=== PATIENT | female | born 1970 | race Caucasian/White ===

== ENCOUNTER 2023-01-26 15:37 | Emergency (ER) | payer MEDICAID, SELFPAY ==
[2023-01-26 15:46] VITALS: BP 115/89; PULSE 108; RESP 18; TEMP 36.8; O2SAT 99; BMI 56.2
--- NOTE | 2023-01-26 15:49 | ED_ITS ---
Documented by User: Jazmin Robles MD 01/26/23 18:52 HPI - Fall General Chief Complaint: Fall Stated Complaint: hit head/headache Time Seen by Provider: 01/26/23 15:49 Related Data Allergies Allergy/AdvReac Type Severity Reaction Status Date / Time amoxicillin Allergy Severe Hives Verified 01/26/23 15:46 meperidine [From Demerol] Allergy Severe Hives Verified 01/26/23 15:46 cortisone AdvReac Severe Hives Verified 01/26/23 15:46 PFSH PFSH Social History Smoking status: Never smoker Exam Constitutional Vital Signs, click to edit/add: Last Vital Signs Temp 98.2 F 01/26/23 15:46 Pulse 99 H 01/26/23 17:43 Resp 14 01/26/23 17:43 BP 103/72 01/26/23 17:18 Pulse Ox 99 01/26/23 17:43 O2 Del Method Room Air 01/26/23 17:43 Course Vital Signs Vital signs: Vital Signs Temperature 98.2 F 01/26/23 15:46 Pulse Rate 108 H 01/26/23 15:46 Respiratory Rate 18 01/26/23 15:46 Blood Pressure 115/89 01/26/23 15:46 Pulse Oximetry 99 01/26/23 15:46 Oxygen Delivery Method Room Air 01/26/23 15:46 Temperature 98.2 F 01/26/23 15:46 Pulse Rate 99 H 01/26/23 17:43 Respiratory Rate 14 01/26/23 17:43 Blood Pressure 103/72 01/26/23 17:18 Pulse Oximetry 99 01/26/23 17:43 Oxygen Delivery Method Room Air 01/26/23 17:43 MDM - Fall MDM Narrative Medical decision making narrative: CT scans of the head and cervical spine were negative for acute findings. The patient was encouraged to follow up with her pcp for a recheck, further evaluation and treatment. Tylenol as directed for pain. Return precautions were discussed. Attending physician attestation I have reviewed the mid-level documentation, agree with the documentation, medical decision making and treatment plan as outlined by the mid-level provider. Discharge Plan Discharge Chief Complaint: Fall Clinical Impression: Head injury, Fall Patient Disposition: Home, Self-Care Time of Disposition Decision: 17:35 Condition: Good Mode of Transportation: Private Vehicle Instructions: Head Injury (ED), Fall Prevention (ED) Additional Instructions: Return to the ER if your condition worsens. Stand Alone Forms: Portal Instructions Referrals: Physician,Non-Staff, MD [Primary Care Provider] - 1 week Discharge Date/Time: 01/26/23 17:45 Documented by User: Ashli Pedro 01/26/23 18:14 HPI - Fall General Chief Complaint: Fall Stated Complaint: hit head/headache Time Seen by Provider: 01/26/23 15:49 Source: patient History of Present Illness HPI Narrative: 52 year old female presents to the ED for a headache s/p fall last night. States she was outside without her walker when she fell, striking her forehead on the ground. Denies LOC, vision changes weakness, dizziness. Reports a continued MILNER today. Denies injury to other areas. Denies pain to her neck, back, chest, abdomen, extremities. Rates her pain 9/10 at this time; severe. She has hx Parkinson's disease. Related Data Allergies Allergy/AdvReac Type Severity Reaction Status Date / Time amoxicillin Allergy Severe Hives Verified 01/26/23 15:46 meperidine [From Demerol] Allergy Severe Hives Verified 01/26/23 15:46 cortisone AdvReac Severe Hives Verified 01/26/23 15:46 Review of Systems ROS Constitutional Denies: fever or chills Eyes Denies: change in vision or blurry vision Cardiovascular Denies: chest pain Respiratory Denies: shortness of breath Gastrointestinal Denies: abdominal pain, nausea or vomiting Musculoskeletal Denies: back pain, neck pain or extremity pain Integumentary/Breast Denies: rash or redness PFSH PFSH Social History Smoking status: Never smoker Exam Constitutional Vital Signs, click to edit/add: Last Vital Signs Temp 98.2 F 01/26/23 15:46 Pulse 99 H 01/26/23 17:43 Resp 14 01/26/23 17:43 BP 103/72 01/26/23 17:18 Pulse Ox 99 01/26/23 17:43 O2 Del Method Room Air 01/26/23 17:43 Common normals: no apparent distress and oriented x3 General appearance: cooperative; not ill appearing [facility] Common normals: normocephalic and external ears normal Nose: external nose normal; no epistaxis External ear: external ears normal Mouth: oral and palatal mucosa normal, lip normal and tongue normal Eye Common normals: PERRL and EOMs intact bilaterally Neck & C-Spine Common normals: supple General: trachea midline Cervical spine: no cervical spine tenderness and no paracervical muscle tenderness Chest Chest: symmetrical chest wall rise Respiratory Common normals: normal respiratory effort Effort & inspection: able to speak in complete sentences and symmetric chest movement; no respiratory distress Cardio Rate: regular rate Back & Pelvis Thoracic spine/upper back: normal to inspection; no thoracic spinal tenderness and no paraspinal muscle tenderness Lumbar spine/lower back: normal to inspection; no lumbar spinal tenderness and no paraspinal muscle tenderness Extremity Common normals: normal to inspection, full ROM and normal capillary refill Neuro Common normals: oriented x3 Sensorium/orientation: awake and alert Speech: speech normal Course Vital Signs Vital signs: Vital Signs Temperature 98.2 F 01/26/23 15:46 Pulse Rate 108 H 01/26/23 15:46 Respiratory Rate 18 01/26/23 15:46 Blood Pressure 115/89 01/26/23 15:46 Pulse Oximetry 99 01/26/23 15:46 Oxygen Delivery Method Room Air 01/26/23 15:46 Temperature 98.2 F 01/26/23 15:46 Pulse Rate 99 H 01/26/23 17:43 Respiratory Rate 14 01/26/23 17:43 Blood Pressure 103/72 01/26/23 17:18 Pulse Oximetry 99 01/26/23 17:43 Oxygen Delivery Method Room Air 01/26/23 17:43 MDM - Fall MDM Narrative Medical decision making narrative: CT scans of the head and cervical spine were negative for acute findings. The patient was encouraged to follow up with her pcp for a recheck, further evaluation and treatment. Tylenol as directed for pain. Return precautions were discussed. Medical Records Attestation: I reviewed the patient's medical records. Imaging Data CT scan- cervical spine: Attestation: I have reviewed the pertinent imaging results. Radiologist's impression: Procedure: CT cervical spine wo con CT CERVICAL SPINE WITHOUT CONTRAST HISTORY: fall. COMPARISON: None available. TECHNIQUE: Helical CT images were performed of the cervical spine without intravenous contrast. Dose reduction techniques were achieved by using automated exposure control and/or adjustment of mA and/or kV according to patient size and/or use of iterative reconstruction technique. 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 MINERALIZATION: Normal. CRANIOCERVICAL AND ATLANTOAXIAL ARTICULATIONS: Intact with no traumatic subluxation. VERTEBRAL BODIES: Normal in height with no acute compression fracture. DISC SPACES: Normal. ALIGNMENT: Normal. POSTERIOR ELEMENTS: Intact. ODONTOID PROCESS: Intact. VISUALIZED SKULL BASE: Unremarkable. SPINAL CANAL/NEURAL FORAMEN: There is mild left and moderate right neural foraminal stenosis at C3-C4 due to facet and uncovertebral hypertrophy. There is no significant canal stenosis. UPPER THORAX: Unremarkable. SOFT TISSUES OF THE NECK: Unremarkable. CT/CT cervical spine wo con IMPRESSION: 1. No acute fracture or subluxation. 2. Degenerative changes as described above. Electronically authenticated by: CAROLYNE URIAS Date: 01/26/2023 17:28 CT scan - head: Attestation: I have reviewed the pertinent imaging results. Radiologist's impression: Procedure: CT head/brain wo con EXAMINATION: CT head/brain wo con, 01/26/2023 4:33 PM EDT HISTORY: fall COMPARISON: None. TECHNIQUE: CT scan of the head was performed without IV contrast. CT dose reduction technique was used, including Automated Exposure Control. FINDINGS: BRAIN PARENCHYMA/CSF SPACES: Ventricles are normal in size for age. There is no hemorrhage, mass effect or midline shift. There are no other significant findings. PARANASAL SINUSES: Clear. SKULL BASE AND CALVARIUM: Normal. EXTRACRANIAL SOFT TISSUES: Normal. CT/CT head/brain wo con IMPRESSION: Normal noncontrast head CT. Electronically authenticated by: CAROLYNE URIAS Date: 01/26/2023 17:22 Discharge Plan Discharge Chief Complaint: Fall Clinical Impression: Head injury, Fall Patient Disposition: Home, Self-Care Time of Disposition Decision: 17:35 Condition: Good Mode of Transportation: Private Vehicle Instructions: Head Injury (ED), Fall Prevention (ED) Additional Instructions: Return to the ER if your condition worsens. Stand Alone Forms: Portal Instructions Referrals: Physician,Non-Staff, MD [Primary Care Provider] - 1 week Discharge Date/Time: 01/26/23 17:45
--- NOTE | 2023-01-26 16:43 | CT_ITS ---
The [address] [address] Patient Name: BRYAN MARTINEZ MRN: [id number] date: 1970 Sex: F Assigned Patient Location: ER Current Patient Location: ED.MAIN Accession/Order Number: [id number] Exam Date: 01/26/2023 16:33 Report Date: 01/26/2023 18:51 At the request of: ELENO BARRERA Procedure: CT head/brain wo con EXAMINATION: CT head/brain wo con, 01/26/2023 4:33 PM EDT HISTORY: fall COMPARISON: None. TECHNIQUE: CT scan of the head was performed without IV contrast. CT dose reduction technique was used, including Automated Exposure Control. FINDINGS: BRAIN PARENCHYMA/CSF SPACES: Ventricles are normal in size for age. There is no hemorrhage, mass effect or midline shift. There are no other significant findings. PARANASAL SINUSES: Clear. SKULL BASE AND CALVARIUM: Normal. EXTRACRANIAL SOFT TISSUES: Normal. CT/CT head/brain wo con IMPRESSION: Normal noncontrast head CT. Electronically authenticated by: CAROLYNE URIAS Date: 01/26/2023 18:51
--- NOTE | 2023-01-26 16:43 | CT_ITS ---
The [address] [address] Patient Name: BRYAN MARTINEZ MRN: [id number] date: 1970 Sex: F Assigned Patient Location: ER Current Patient Location: .[facility] Accession/Order Number: [id number] Exam Date: 01/26/2023 16:33 Report Date: 01/26/2023 18:51 At the request of: ELENO BARRERA Procedure: CT cervical spine wo con CT CERVICAL SPINE WITHOUT CONTRAST HISTORY: fall. COMPARISON: None available. TECHNIQUE: Helical CT images were performed of the cervical spine without intravenous contrast. Dose reduction techniques were achieved by using automated exposure control and/or adjustment of mA and/or kV according to patient size and/or use of iterative reconstruction technique. 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 MINERALIZATION: Normal. CRANIOCERVICAL AND ATLANTOAXIAL ARTICULATIONS: Intact with no traumatic subluxation. VERTEBRAL BODIES: Normal in height with no acute compression fracture. DISC SPACES: Normal. ALIGNMENT: Normal. POSTERIOR ELEMENTS: Intact. ODONTOID PROCESS: Intact. VISUALIZED SKULL BASE: Unremarkable. SPINAL CANAL/NEURAL FORAMEN: There is mild left and moderate right neural foraminal stenosis at C3-C4 due to facet and uncovertebral hypertrophy. There is no significant canal stenosis. UPPER THORAX: Unremarkable. SOFT TISSUES OF THE NECK: Unremarkable. CT/CT cervical spine wo con IMPRESSION: 1. No acute fracture or subluxation. 2. Degenerative changes as described above. Electronically authenticated by: CAROLYNE URIAS Date: 01/26/2023 18:51
[2023-01-26 17:18] VITALS: BP 103/72; PULSE 100; RESP 16; O2SAT 99
[2023-01-26 17:43] VITALS: PULSE 99; RESP 14; O2SAT 99
== END 2023-01-26 17:45 | disposition home or self-care (01) ==
PROVIDERS: Emergency Provider Emergency Medicine
DX: S09.90XA Unspecified injury of head, initial encounter (principal); W19.XXXA Unspecified fall, initial encounter; G20 Parkinson's disease
CPT/HCPCS: 70450; 72125; 99284

== ENCOUNTER 2025-02-27 18:31 | Inpatient (IN) | payer MEDICARE, MEDICAID, SELFPAY ==
[2025-02-27] VITALS (17 sets, daily range): BP systolic 112–118; BP diastolic 67–95; PULSE 91–218; TEMP 36.4–36.8; O2SAT 95–100; BMI 36.0; BMI 41.9
--- NOTE | 2025-02-27 19:13 | XR_ITS ---
The [address] [address] Patient Name: BRYAN MARTINEZ MRN: [id number] date: 1970 Sex: F Assigned Patient Location: ER Current Patient Location: ER Accession/Order Number: [id number] Exam Date: 02/27/2025 19:42 Report Date: 02/27/2025 19:58 At the request of: LAUREN RO MD Procedure: XR chest 1V XR chest 1V 02/27/2025 7:50 PM SIGNS AND SYMPTOMS: ^Tachycardia ^Y PROTOCOL: Frontal radiograph of the chest COMPARISON: None FINDINGS: The trachea is midline. There is mild cardiomegaly. The lung parenchyma is clear. The bony thorax is intact. Degenerative changes are noted in the shoulders and thoracic spine. XR/XR chest 1V IMPRESSION: No focal consolidation. There is mild cardiomegaly. Impression dictated by: Remy Sanchez M.D. 02/27/2025 7:58 PM Dictation Location: [place] [address] Electronically authenticated by: [id number] Y Date: 02/27/2025 19:58
--- NOTE | 2025-02-27 19:13 | ECG_ITS ---
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 Measurements Intervals [place] Rate: 115 P: -97209 NC: -11671 QRS: -71 QRSD: 80 T: 73 QT: 292 QTc: 360 Interpretive Statements Likely sinus tachycardia 3114 Cannot rule out anterior myocardial infarction, age undetermined 3634 Inferior myocardial infarction, age undetermined [address] depression, probably digitalis effect 0102 ARTIFACT PRESENT 9150 abnormal ECG No previous ECG available for comparison Repeat ECG is recommended Electronically Signed On 02-28-2025 20:10:[address] M.D.
--- NOTE | 2025-02-27 19:14 | CT_ITS ---
The [address] [address] Patient Name: BRYAN MARTINEZ MRN: [id number] date: 1970 Sex: F Assigned Patient Location: ER Current Patient Location: ER Accession/Order Number: [id number] Exam Date: 02/27/2025 19:42 Report Date: 02/27/2025 19:56 At the request of: LAUREN RO MD Procedure: CT head/brain wo con CT head/brain wo con 02/27/2025 7:50 PM SIGNS AND SYMPTOMS: ^Visual hallucinations TECHNIQUE:Multi-detector CT axial slices of the brain were obtained without IV contrast. CT was performed with one or more of the following dose reduction techniques: Automated exposure control, adjustment of the mA and/or kV according to patient size, or use of iterative reconstruction technique. COMPARISON: None. FINDINGS: There is no shift of the midline structures, acute intracranial bleeding, mass effects, or evidence of acute ischemia. The ventricular system is normal in size. The brainstem and the cerebellum are unremarkable. The visualized intraorbital contents, the visualized paranasal sinuses, and the infratemporal soft tissues show no acute abnormality. The osseous structures in the skull base and the calvarium show no abnormality. CT/CT head/brain wo con IMPRESSION: No acute intrarenal pathology. Impression dictated by: Remy Sanchez M.D. 02/27/2025 7:56 PM Dictation Location: [place] [address] Electronically authenticated by: [id number] Y Date: 02/27/2025 19:56
--- NOTE | 2025-02-27 19:14 | ED.GENADUL1 ---
HPI HPI - General Adult General Chief complaint: Urogenital-Female Stated complaint: POSS UTI, PAIN/SPOTS ON LEGS Time Seen by Provider: 02/27/25 18:52 Source: patient Mode of arrival: walk-in Limitations: physical limitation History of Present Illness HPI narrative: 54-year-old female presents to [facility] for possible UTI. She had been discharged from another hospital, where she has been admitted for UTI, about 10 days ago and went back to her ECF. She states that she has been seeing spiders in her bed and the staff there is been yelling at her and she does not like it when they yell at her. She was noted to be tachycardic. She has been tremorous but has Parkinson. No fever or vomiting. Related Data Allergies Allergy/AdvReac Type Severity Reaction Status Date / Time amoxicillin Allergy Severe Hives Verified 02/27/25 18:40 meperidine (From Demerol) Allergy Severe Hives Verified 02/27/25 18:40 Review of Systems ROS Narrative A ten point review of systems is negative except as noted above. PFSH PFSH Social History Smoking status: Never smoker Exam Narrative Exam Narrative: Nurses note and vital signs reviewed and patient is not hypoxic. General: The patient appears in no acute distress Skin: Warm, dry, no pallor noted. Head: Normocephalic, atraumatic Eye: Normal conjunctiva, no drainage Ears, Nose, Mouth, and Throat: oral mucosa is moist. Nares patent. Cardiovascular: Regular Rate and Rhythm, tachycardic Respiratory: Patient is in no distress, no accessory muscle use, lungs are clear to auscultation, no wheezing, rales or rhonchi Back: non-tender GI: Soft and nontender Musculoskeletal: The patient has no evidence of calf tenderness, no pitting edema, symmetrical pulses noted bilaterally Neurological: A&O x4, normal speech; tremorous Psychiatric: Cooperative Constitutional Vital Signs, click to edit/add: Last Vital Signs Temp 97.5 F L 02/27/25 18:41 Pulse 122 H 02/27/25 18:41 Resp 18 02/27/25 18:41 BP 117/95 H 02/27/25 18:41 Pulse Ox 96 02/27/25 18:41 O2 Del Method Room Air 02/27/25 18:41 Course Vital Signs Vital signs: Vital Signs Temperature 97.5 F L 02/27/25 18:41 Pulse Rate 122 H 02/27/25 18:41 Respiratory Rate 18 02/27/25 18:41 Blood Pressure 117/95 H 02/27/25 18:41 Pulse Oximetry 96 02/27/25 18:41 Oxygen Delivery Method Room Air 02/27/25 18:41 Temperature 97.5 F L 02/27/25 18:41 Pulse Rate 122 H 02/27/25 18:41 Respiratory Rate 18 02/27/25 18:41 Blood Pressure 117/95 H 02/27/25 18:41 Pulse Oximetry 96 02/27/25 18:41 Oxygen Delivery Method Room Air 02/27/25 18:41 Medical Decision Making MDM Narrative Medical decision making narrative: Urine shows 5-10 white cells per high-power field and trace leukocyte esterase. Cultures pending. WBC is 14.9. Initial lactic acid is 2.8. She was given IV fluids and IV Cipro with cultures pending. Brain CT and chest x-ray are negative and she is being admitted. Treatment diagnosis and disposition were discussed with the patient and her family. Differential Diagnosis Differential Diagnosis: UTI, pneumonia, dehydration Lab Data Lab results reviewed: Yes I reviewed the patient's lab results Labs: Lab Results 02/27/25 02/27/25 Range/Units 19:06 19:27 WBC 14.9 H (4.0-11.0) 10^3/uL RBC 4.80 (4.20-5.40) 10^6/uL Hgb 13.8 (12.0-16.0) g/dL Hct 41.7 (36.0-48.0) % MCV 86.9 (81.0-99.0) fL MCH 28.8 (26.7-34.0) pg MCHC 33.1 (29.9-35.2) g/dL RDW 13.4 (11.0-15.0) % Plt Count 486 H (150-450) 10^3/uL MPV 9.3 L (9.5-13.5) fL Neut % (Auto) 74.3 (43.0-75.0) % Lymph % (Auto) 15.1 L (20.5-60.0) % [place] % (Auto) 8.8 (1.7-12.0) % Eos % (Auto) 0.5 L (0.9-7.0) % Baso % (Auto) 0.9 (0.2-2.0) % Neut # (Auto) 11.1 H (1.4-6.5) 10^3/uL Lymph # (Auto) 2.3 (1.2-3.8) 10^3/uL [place] # (Auto) 1.3 H (0.3-0.8) 10^3/uL Eos # (Auto) 0.1 (0.0-0.7) 10^3/uL Baso # (Auto) 0.1 (0.0-0.1) 10^3/uL Abs Immat Gran (auto) 0.06 H (0.00-0.03) 10^3/uL Imm/Tot Granulo (auto) 0.4 (0.0-0.5) % Sodium 139 (136-145) mmol/L Potassium 4.6 (3.5-5.1) mmol/L Chloride 102 (98-107) mmol/L Carbon Dioxide 25.2 (21.0-32.0) mmol/L Anion Gap 16.4 BUN 16.0 (7.0-18.0) mg/dL Creatinine 0.98 (0.55-1.02) mg/dL Est GFR ( Amer) >60 (>=60 mL/min/1.73m^2) Est GFR (Non-Af Amer) 59 L (>=60 mL/min/1.73m^2) BUN/Creatinine Ratio 16.3 Glucose 112 H (74-106) mg/dL Lactate 2.8 H* (0.4-2.0) mmol/L Calcium 9.7 (8.5-10.1) mg/dL Total Bilirubin 0.5 (0.2-1.0) mg/dL AST 18 (15-37) U/L ALT 18 (14-59) U/L Alkaline Phosphatase 104 (46-116) U/L Total Protein 8.0 (6.4-8.2) g/dL Albumin 4.0 (3.4-5.0) g/dL Globulin 4.0 g/dL Albumin/Globulin Ratio 1.0 Urine Color Yellow (YELLOW) Urine Clarity Clear (CLEAR) Urine pH 6.0 (5.0-9.0) Ur Specific [place] >=1.030 A (1.005-1.025) Urine Protein Trace (NEG/TRACE) mg/dL Urine Glucose (UA) Negative (NEGATIVE) mg/dL Urine Ketones >=80 A (NEGATIVE) mg/dL Urine Occult Blood Negative (NEGATIVE) Urine Nitrite Negative (NEGATIVE) Urine Bilirubin Negative (NEGATIVE) Urine Urobilinogen 0.2 (0.2-1.0) EU/dL Ur Leukocyte Esterase Trace A (NEGATIVE) Urine RBC 0-2 (0-2) #/HPF Urine WBC 5-10 A (NONE SEEN) #/HPF Ur Squamous Epith Cells None seen (NONE/RARE) #/LPF Urine Crystals None seen (None Seen) #/HPF Urine Bacteria None seen (NONE SEEN) #/HPF Urine Casts None seen (NONE SEEN) #/LPF Urine Mucus Small A (NONE SEEN) Ur Culture Indicated? Yes-[facility] [place] Imaging Data Chest x-ray: Radiologist's impression: ITS Impressions Chest X-Ray 02/27/25 19:13 IMPRESSION: No focal consolidation. There is mild cardiomegaly. Impression dictated by: Remy Sanchez M.D. 02/27/2025 7:58 PM Dictation Location: [place] [address] Electronically authenticated by: [id number] Y Date: 02/27/2025 19:[address] 02/27/25 19:14 IMPRESSION: No acute intrarenal pathology. Impression dictated by: Remy Sanchez M.D. 02/27/2025 7:56 PM Dictation Location: [place] [address] Electronically authenticated by: [id number] Y Date: 02/27/2025 19:56 ECG Data Attestation: I personally reviewed and interpreted this ECG as follows: (EKG on my interpretation shows artifact. The patient has significant tremors from Parkinson and a good EKG is not obtained) Discharge Plan Discharge Chief Complaint: Urogenital-Female Clinical Impression: Urinary tract infection Patient Disposition: Admitted As Inpatient Time of Disposition Decision: 20:16 Condition: Fair
[2025-02-27 19:33] LABS: Hematocrit 41.7 % (36.0-48.0); Hemoglobin 13.8 g/dL (12.0-16.0); Immature Granulocytes Abs Auto 0.06 10^3/uL (0.00-0.03); Immature Granulocytes Pct Auto 0.4 % (0.0-0.5); Lymphocytes Absolute Auto 2.3 10^3/uL (1.2-3.8); Mean Corpuscular HGB Conc 33.1 g/dL (29.9-35.2); Mean Corpuscular Hemoglobin 28.8 pg (26.7-34.0); Mean Corpuscular Volume 86.9 fL (81.0-99.0); Platelet Count 486 10^3/uL (150-450); Red Blood Count 4.80 10^6/uL (4.20-5.40); White Blood Count 14.9 10^3/uL (4.0-11.0)
[2025-02-27 19:35] LABS: Glucose Urine UA NEGATIVE (NEGATIVE)
[2025-02-27 19:42] LABS: Cast Seen? NONE SEEN #/LPF (NONE SEEN); Crystals Seen? None Seen #/HPF (None Seen); Urine Culture Indicated YES-FRMC
[2025-02-27 19:48] LABS: Alanine Aminotransferase 18 U/L (14-59); Albumin Globulin Ratio 1.0; Albumin Level 4.0 g/dL (3.4-5.0); Alkaline Phosphatase 104 U/L (46-116); Anion Gap 16.4; Aspartate Amino Transferase 18 U/L (15-37); Blood Urea Nitrogen 16.0 mg/dL (7.0-18.0); Calcium 9.7 mg/dL (8.5-10.1); Carbon Dioxide 25.2 mmol/L (21.0-32.0); Chloride 102 mmol/L (98-107); Estimated GFR (African America >60 (>=60 mL/min/1.73m^2); Estimated GFR (Non-African Ame 59 (>=60 mL/min/1.73m^2); Globulin 4.0 g/dL; Glucose 112 mg/dL (74-106); Potassium 4.6 mmol/L (3.5-5.1); Sodium 139 mmol/L (136-145); Total Protein 8.0 g/dL (6.4-8.2)
[2025-02-27 20:03] LABS: Lactate/Lactic Acid 2.8 mmol/L (0.4-2.0)
[2025-02-27] MEDS: 0.9 % SODIUM CHLORIDE 1,000 ML 1000 ML IV (20:23)
[2025-02-27] MEDS: CIPROFLOXACIN IN 5 % DEXTROSE 400 MG/200 ML PREMIX 200 MG IV (20:24)
[2025-02-27] MEDS: METOPROLOL TARTRATE 25 MG TABLET PO (23:15)
[2025-02-27] MEDS: ASPIRIN 81 MG TAB.CHEW PO (23:15)
[2025-02-27] MEDS: METOPROLOL TARTRATE 5 MG/5 ML VIAL IVP (23:16)
[2025-02-28] VITALS (17 sets, daily range): BP systolic 98–121; BP diastolic 62–70; PULSE 78–103; TEMP 36.5–37.1; O2SAT 94–95
[2025-02-28 05:12] LABS: Hematocrit 37.4 % (36.0-48.0); Hemoglobin 12.3 g/dL (12.0-16.0); Immature Granulocytes Abs Auto 0.02 10^3/uL (0.00-0.03); Immature Granulocytes Pct Auto 0.2 % (0.0-0.5); Lymphocytes Absolute Auto 1.8 10^3/uL (1.2-3.8); Mean Corpuscular HGB Conc 32.9 g/dL (29.9-35.2); Mean Corpuscular Hemoglobin 28.7 pg (26.7-34.0); Mean Corpuscular Volume 87.4 fL (81.0-99.0); Platelet Count 372 10^3/uL (150-450); Red Blood Count 4.28 10^6/uL (4.20-5.40); White Blood Count 9.7 10^3/uL (4.0-11.0)
[2025-02-28 05:33] LABS: Alanine Aminotransferase 23 U/L (14-59); Albumin Globulin Ratio 0.9; Albumin Level 3.1 g/dL (3.4-5.0); Alkaline Phosphatase 84 U/L (46-116); Anion Gap 12.8; Aspartate Amino Transferase 13 U/L (15-37); Blood Urea Nitrogen 11.0 mg/dL (7.0-18.0); Calcium 8.5 mg/dL (8.5-10.1); Carbon Dioxide 22.9 mmol/L (21.0-32.0); Chloride 106 mmol/L (98-107); Estimated GFR (African America >60 (>=60 mL/min/1.73m^2); Estimated GFR (Non-African Ame >60 (>=60 mL/min/1.73m^2); Globulin 3.4 g/dL; Glucose 86 mg/dL (74-106); Magnesium 1.9 mg/dL (1.8-2.4); Potassium 3.7 mmol/L (3.5-5.1); Sodium 138 mmol/L (136-145); Total Protein 6.5 g/dL (6.4-8.2)
[2025-02-28] MEDS: ENOXAPARIN SODIUM 40 MG/0.4 ML SYRINGE SUBQ (08:16)
[2025-02-28] MEDS: ASPIRIN 81 MG TAB.CHEW PO (08:16)
[2025-02-28] MEDS: METOPROLOL TARTRATE 25 MG TABLET PO ×2 (08:16→21:02)
--- NOTE | 2025-02-28 08:40 | CM.NOTE ---
Rounds made with Dr. Mcclendon, discussed with pt reason for admission and plan of care. Pt is inpatient status, no discharge today. Pt will need continued inpatient treatment as ordered.
--- NOTE | 2025-02-28 09:12 | SWNOTE1 ---
LEIGH reached out to Danielle at [facility] to see if pt was skilled or long-term at there facility. Danielle replied that she will check and get back to LEIGH.
[2025-02-28] MEDS: NYSTATIN 100,000 UNITS/GRAM CREAM 15 GM TUBE 1 APPLIC TOPICAL ×2 (09:14→21:02)
--- NOTE | 2025-02-28 10:05 | SWNOTE1 ---
Important Message from [employer] reviewed and discussed with patient. Pt. verbalized understanding and signed the form. Original given to patient and copy placed in patient?s chart.
--- NOTE | 2025-02-28 10:05 | SWNOTE1 ---
SW met with pt to discuss dc needs. 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 Pt let SW know she is still getting therapy at [facility] 5x a week. She does have her rollator in the room as well. Pt let SW know that she was at [facility] for rehab a year or 2 ago and then returned home. She has Parkinson's and it got worse and she could not care for herself at home and returned to [facility]. She stated she now has a new Parkinson's doctor and she is getting better. If she gets to a point that she can care for herself, she stated [facility] will assist with placement at assisted living if that is what patient wants. Pt's plan right now is to return to [facility] and get more therapy. SW did let pt know that Danielle from [facility] will be stopping to see her, pt is in agreement with Danielle visiting. At this time pt has no concerns. SW to send updates to [facility]. Updates faxed to Danielle at [facility]. Updates included physician notes, labs, vitals, face sheet, nursing notes, and diagnostic imaging.
--- NOTE | 2025-02-28 11:19 | SWNOTE1 ---
LEIGH received an email from Ivana at [facility] and she stated that pt is skilled and will return skilled at discharge. SW to let nurse know.
--- NOTE | 2025-02-28 12:52 | PM.HP ---
HPI H&P: HPI History of Present Illness Chief complaint: UTI (not a& O) Narrative: Mrs. Rinaldi is a 54-year-old female with a known diagnosis of Parkinson disease. Patient was brought to the emergency room suspecting that she may have recurrent UTI. Patient was recently admitted to an outside hospital with UTI and was discharged to a nursing facility for skilled care due to her Parkinson disease. Patient was found to have mild tachycardia, leukocytosis and elevated lactic acid Residual UTI seen on UA. Patient denies any abdominal pain. No nausea or vomiting. Opioid HPI Opioid Management Most Recent Pain and Opioid Data: Last Pain Assessment 02/27/25, 22:00 Last ORT Total Score 0 02/27/25, 21:23 Last ORT Risk Category Low Risk 02/27/25, :23 [facility] Medical History (Updated 02/28/25 @ 12:55 by Naren Mcclendon MD) Corneal abrasion ?S05.00XA - Injury of conjunctiva and corneal abrasion without foreign body, unspecified eye, initial encounter (ICD-10) Mitral valve prolapse ?I34.1 - Nonrheumatic mitral (valve) prolapse (ICD-10) Gastric reflux ?K21.9 - Gastro-esophageal reflux disease without esophagitis (ICD-10) Chronic kidney disease ?N18.9 - Chronic kidney disease, unspecified (ICD-10) Tachycardia ?R00.0 - Tachycardia, unspecified (ICD-10) Hallucination ?R44.3 - Hallucinations, unspecified (ICD-10) HTN (hypertension) ?I10 - Essential (primary) hypertension (ICD-10) Surgical History (Updated 02/27/25 @ 21:30 by Serenity John RN) H/O radiofrequency ablation (RFA) of nerve of lumbar spine ?Z98.890 - Other specified postprocedural states (ICD-10) Family History (Updated 02/27/25 @ 21:31 by Serenity John RN) Grandmother Family history of CHF (congestive heart failure) Family history of stroke Mother Family history of CHF (congestive heart failure) Family history of COPD (chronic obstructive pulmonary disease) Family history of cancer Family history of diabetes mellitus Grandfather Family history of myocardial infarction Social History (Updated 02/27/25 @ 21:32 by Serenity John RN) Within the past year, how often did you have a drink containing alcohol: never Within the past year, how often did you have six or more drinks on one occasion: never Score interpretation: A score less than 3 is consistent with normal alcohol consumption. Smoking status: Never smoker Non-prescribed substance use: denies use Previous occupational history: does not work Known occupational exposures/hazards: No Highest level of school completed/degree received: high school graduate Do you want help with school or training: No Are you now , , , , never or living with a partner: never In a typical week, how many times do you talk on the telephone with family, friends, or neighbors: once per week How often do you get together with friends or relatives: 3 or more times per week How often do you attend worship or anglican services: 4 or more times per year Do you belong to any clubs or organizations such as worship groups unions, 5[employer] or athletic groups, or school groups: no Total score: 2 Score interpretation: A score of greater than or equal to 2 indicates the lowest level of social isolation. Little interest or pleasure in doing things: not at all Feeling down, depressed, or hopeless: not at all Feel stressed/tense/nervous/anxious/difficulty sleeping: not at all Due to disability, difficulty making decisions: No Meds Home Medications and Allergies Home Medications ?Medication ?Instructions ?Recorded ?Confirmed ?Type amantadine HCl 100 mg capsule 100 mg PO BID 02/27/25 02/27/25 History ascorbic acid (vitamin C) 250 mg 250 mg PO DAILY 02/27/25 02/27/25 History tablet bisacodyl 10 mg rectal suppository 10 mg VT DAILY PRN constipation 02/27/25 02/27/25 History (Dulcolax (bisacodyl)) buspirone 10 mg tablet 10 mg PO TID 02/27/25 02/27/25 History carbidopa 25 mg-levodopa 100 mg 2 tab PO TID 02/27/25 02/27/25 History tablet cetirizine 10 mg capsule 10 mg PO DAILY 02/27/25 02/27/25 History cholecalciferol (vitamin D3) 50 50 mcg PO DAILY 02/27/25 02/27/25 History mcg (2,000 unit) capsule cyclobenzaprine 5 mg tablet 5 mg PO TID 02/27/25 02/27/25 History lidocaine 5 % topical patch 1 patch topical .Q12 PRN pain 02/27/25 02/28/25 History metoprolol tartrate 25 mg tablet 25 mg PO Q12H 02/27/25 02/28/25 History nystatin 100,000 unit/gram topical 1 applic topical .q6 PRN red 02/27/25 02/28/25 History powder omeprazole 20 mg capsule,delayed 20 mg PO .am 02/27/25 02/28/25 History release sodium phosphates 19 gram-7 118 ml VT DAILY PRN constipation 02/27/25 02/27/25 History gram/118 mL enema cyclosporine 0.05 % eye drops in a 1 drp ophthalmic (eye) Q12H 02/28/25 02/28/25 History dropperette (Restasis) melatonin 5 mg capsule 3 mg PO HS PRN sleep 02/28/25 02/28/25 History Allergies Allergy/AdvReac Type Severity Reaction Status Date / Time amoxicillin Allergy Severe Hives Verified 02/27/25 18:40 meperidine (From Demerol) Allergy Severe Hives Verified 02/27/25 18:40 Exam Narrative Exam Narrative: [pt is awake and alert. oriented to place, time and person, morbidly obese HEENT: [place] conjunctiva and NL buccal mucosa Neck: Supple, no tenderness Endocrine: No Thyromegaly. Vascular: No JVD or carotid bruit. Lymphatic: No cervical lymphadenopathy. Chest: CTA no DTP. Heart RRR, no extra sound or murmur. Abd: Soft, no tenderness, no rebound and no rigidity. Increase abd girth therefore clinically I could not exclude the possibility of intra abd mass or organomegaly. LE: No cyanosis or clubbing, no varices. Bilateral lower extremities edema. Joint deformity. Neuro: A A O. Nl speech, resting tremor, increased rigidity, moderate functional impairment, unable to stand up and ambulate on her own. Symmetrical motor and tone []] Constitutional Vital Signs, click to edit/add: Last Vital Signs Temp 98.7 F 02/28/25 07:19 Pulse 90 02/28/25 12:11 Resp 18 02/28/25 12:13 BP 121/70 02/28/25 12:11 Pulse Ox 94 L 02/28/25 12:11 O2 Del Method Room Air 02/28/25 12:11 Results Labs Labs: Short CBC 02/27/25 02/28/25 Range/Units 19:06 04:54 WBC 14.9 H 9.7 (4.0-11.0) 10^3/uL Hgb 13.8 12.3 (12.0-16.0) g/dL Hct 41.7 37.4 (36.0-48.0) % Plt Count 486 H 372 (150-450) 10^3/uL BMP 02/27/25 02/28/25 19:06 04:54 Sodium 139 138 Potassium 4.6 3.7 Chloride 102 106 Carbon Dioxide 25.2 22.9 BUN 16.0 11.0 Creatinine 0.98 0.64 Glucose 112 H 86 Calcium 9.7 8.5 Liver Function 02/27/25 02/28/25 Range/Units 19:06 04:54 Total Bilirubin 0.5 0.5 (0.2-1.0) mg/dL AST 18 13 L (15-37) U/L ALT 18 23 (14-59) U/L Alkaline Phosphatase 104 84 (46-116) U/L Albumin 4.0 3.1 L (3.4-5.0) g/dL Urine 02/27/25 Range/Units 19:27 Urine Color Yellow (YELLOW) Urine Clarity Clear (CLEAR) Urine pH 6.0 (5.0-9.0) Ur Specific [place] >=1.030 A (1.005-1.025) Urine Protein Trace (NEG/TRACE) mg/dL Urine Glucose (UA) Negative (NEGATIVE) mg/dL Assessment and Plan Assessment and Plan (1) Urinary tract infection: (2) Encephalopathy: (3) Sepsis: (4) Edema: Plan Sepsis present on admission manifested by leukocytosis, tachycardia, elevated lactic acid and signs of infection Patient was given aggressive IV fluid infusion. Blood and urine cultures were completed. Continue IV antibiotic. Urinary tract infection I suspect that this is partially treated. She was recently admitted to an outside hospital and completed a course of antibiotic. Urine and blood cultures are pending. Start patient on doxycycline. Urinary retention about 300 mL. This is likely secondary to overflow retention and less likely related to overactive bladder. Avoid suppressive therapy. Consideration for straight cath versus indwelling Justice catheter. Continue to BladderScan her while in the hospital. Encephalopathy, confusion, hallucination This could be related to sepsis and UTI This could be related to carbidopa. Not sure if her dose has been increased recently. Patient appears to be coherent. No evidence of delusion at this time. No clinical evidence that suggest meningitis or encephalitis CAT scan of the head is negative. No strong indication to proceed with MRI imaging at this time Parkinson disease with significant resting tremor, rigidity and functional disability Continue preadmission home medication although her hallucination could be related to carbidopa. Patient is to follow-up with her neurologist Dr. Moore. Bilateral lower extremities with edema Venous ultrasound rule out DVT Hypertension Continue home metoprolol Constipation Continue stool softeners and stimulant DVT prophylaxis Lovenox subcu Chronic medical conditions not listed above, incidental findings seen on labs and imaging. These would need to be addressed. Could be addressed when time and condition are appropriate. Could be addressed in the outpatient setting by PCP collaboration with other needed outpatient providers. Urinary Catheter Management Urinary Catheter Management Straight: Cath placed during this visit: yes Urethral indwelling: No Insertion date: 02/27/25 Insertion time: 20:10
[2025-02-28] MEDS: CYCLOBENZAPRINE HCL 10 MG TABLET 5 MG PO ×2 (14:41→21:02)
[2025-02-28] MEDS: CARBIDOPA/LEVODOPA 25 MG-100 MG TABLET 2 TAB PO ×2 (14:42→21:02)
[2025-02-28] MEDS: BUSPIRONE HCL 10 MG TABLET PO ×2 (14:42→21:02)
[2025-02-28] MEDS: DOXYCYCLINE HYCLATE 100 MG in 0.9 % SODIUM CHLORIDE 100 ML IV (14:48)
--- NOTE | 2025-02-28 14:56 | SWNOTE1 ---
SW faxed H&P and PT/OT notes to [facility] at [facility].
[2025-02-28] MEDS: 0.9 % SODIUM CHLORIDE 250 ML 10 ML IV (15:06)
[2025-02-28] MEDS: AMANTADINE HCL 100 MG CAPSULE PO (21:02)
--- NOTE | 2025-02-28 21:28 | CA_ITS ---
Patient Name: BRYAN MARTINEZ MR#: [id number] : 1970 Exam Date: 02/28/2025 Ordering Doctor: JERI CANCHOLA ECHOCARDIOGRAM REPORT PROCEDURE: CA ECHO DOPPLER COMPLETE INDICATIONS: A fib, hypertension, Parkinson's COMPARISON: None. DESCRIPTION: COMPLETE ECHOCARDIOGRAM Real-time transthoracic echocardiography with 2D, M-mode, spectral and color flow Doppler performed. QUALITY: Technical quality was good. LEFT VENTRICLE: Normal chamber size. Normal left ventricular wall thickness. LV EF: Global left ventricular systolic function is normal; visually estimated ejection fraction is 60 to 65%. No significant wall motion abnormalities. DIASTOLIC: Normal diastolic function. ATRIAL SEPTUM: Inadequately seen. LEFT ATRIUM: Normal chamber size. RIGHT ATRIUM: Normal chamber size. RIGHT VENTRICLE: Normal chamber size. Normal right ventricular systolic function. TRICUSPID VALVE: Normal mobility and thickness. No stenosis with trivial regurgitation. Doppler studies reveal mildly (35-45) elevated right-sided pressures. RVSP 38 mmHg MITRAL VALVE: Normal mobility and thickness. No evidence of mitral valve stenosis. There is no mitral annular calcification. Trivial mitral regurgitation. AORTIC VALVE: Doppler velocity suggests mild aortic valve stenosis. Peak velocity 2.28 m/sec, Mean 12 mmHg. Leaflets are difficult to visualize. No aortic regurgitation. AORTIC ROOT: Normal diameter and appearance. Ascending aorta is dilated (4.1 cm). PULMONIC VALVE: Normal thickness and mobility. No stenosis. No regurgitation. PERICARDIUM: No evidence of pericardial effusion. IVC: Not well visualized. CONCLUSION: 1. Global left ventricular systolic function is normal; visually estimated ejection fraction is 60 to 65% 2. Normal right ventricular size and systolic function 3. Normal diastolic function 4. Mildly elevated right ventricular systolic pressure; RVSP 28 mmHg 5. Aortic valve leaflets are difficult to visualize; velocity and gradient suggests mild aortic valve stenosis Adult Echocardiography Procedure Report Left Ventricle LVEDD (3.7 - 5.6 cm): 4.27 cm LVESD (2.2 - 4.0 cm): 2.90 cm LVIVS thickness (0.6 - 1.2 cm): 0.70 cm LVPW thickness (0.5 - 1.0 cm): 0.92 cm e': 0.15 m/s E - e': 5.22 LVOT Max Gradient: 2.93 mm[Hg] LVOT Area (cm2): 0.86 m/s Peak Velocity (LVOT): 0.86 m/s Mean Velocity (LVOT): 0.54 m/s LVOT Diameter 2.08 cm Left Ventricular Ejection Fraction: 62.43 % Left Atrium LA Volume Index (2D A2C): 22.24 ml/m2 Left Atrium Systolic Dimension: 3.38 cm Mitral Valve MV E to A Ratio: 0.80 Mitral Valve A-Wave Peak Velocity: 1.01 m/s Mitral Valve E-Wave Peak Velocity: 0.81 m/s Right Ventricle Aorta AO Root Diam: 3.54 cm Ascending Ao Diam: 3.68 cm Aortic Valve AoV Area (Peak Tristian): 1.27 cm2, 1.27 cm2 AoV Area (VTI): 1.24 cm2, 1.26 cm2 Peak Velocity(Antegrade Flow): 2.28 m/s, 2.19 m/s Peak Gradient(Antegrade Flow): 20.83 mm[Hg], 19.20 mm[Hg] Mean Velocity(Antegrade Flow): 1.63 m/s, 1.50 m/s Mean Gradient(Antegrade Flow): 11.95 mm[Hg], 10.49 mm[Hg] Velocity Time Integral: 47.46 cm, 47.87 cm Tricuspid Valve Peak Velocity (Regurgitant Flow): 2.98 m/s Pulmonic Valve Peak Gradient: 3.98 mm[Hg], 4.27 mm[Hg] Right Atrium Right Atrium Systolic Pressure: 34.40 ml, 34.40 ml Dictated by: Felicity Melchor M.D. on 02/28/2025 at 16:46 Approved by: Felicity Melchor M.D. on 02/28/2025 at 16:51
[2025-03-01] VITALS (17 sets, daily range): BP systolic 95–142; BP diastolic 61–88; PULSE 76–105; TEMP 36.4–36.8; O2SAT 88–96
[2025-03-01] MEDS: DOXYCYCLINE HYCLATE 100 MG in 0.9 % SODIUM CHLORIDE 100 ML IV ×2 (01:40→13:54)
[2025-03-01] MEDS: CARBIDOPA/LEVODOPA 25 MG-100 MG TABLET 2 TAB PO ×3 (05:37→21:18)
[2025-03-01] MEDS: PANTOPRAZOLE SODIUM 40 MG TABLET.DR PO (05:37)
[2025-03-01] MEDS: CYCLOBENZAPRINE HCL 10 MG TABLET 5 MG PO ×3 (05:37→21:18)
[2025-03-01] MEDS: BUSPIRONE HCL 10 MG TABLET PO ×3 (05:37→21:18)
--- NOTE | 2025-03-01 07:30 | CM.NOTE ---
Rounds made with Dr. Mcclendon, discussed plan of care with pt, no discharge today.
[2025-03-01] MEDS: METOPROLOL TARTRATE 25 MG TABLET PO (08:34)
[2025-03-01] MEDS: ASPIRIN 81 MG TAB.CHEW PO (08:34)
[2025-03-01] MEDS: ENOXAPARIN SODIUM 40 MG/0.4 ML SYRINGE SUBQ (08:34)
[2025-03-01] MEDS: NYSTATIN 100,000 UNITS/GRAM CREAM 15 GM TUBE 1 APPLIC TOPICAL ×2 (08:39→21:18)
--- NOTE | 2025-03-01 09:56 | P.PN_ITS ---
Progress Note: Subjective Subjective Interval history: Uneventful night. Resolution of her hallucination. No chest pain. No abdominal pain. No nausea or vomiting. Exam Narrative Exam Narrative: [pt is awake and alert. oriented to place, time and person, morbidly obese HEENT: [place] conjunctiva and NL buccal mucosa Neck: Supple, no tenderness Endocrine: No Thyromegaly. Vascular: No JVD or carotid bruit. Lymphatic: No cervical lymphadenopathy. Chest: CTA no DTP. Heart RRR, no extra sound or murmur. Abd: Soft, no tenderness, no rebound and no rigidity. Increase abd girth therefore clinically I could not exclude the possibility of intra abd mass or organomegaly. LE: No cyanosis or clubbing, no varices. Bilateral lower extremities edema. Joint deformity. Neuro: A A O. Nl speech, resting tremor, increased rigidity, moderate functional impairment, unable to stand up and ambulate on her own. Symmetrical motor and tone []] Constitutional Vital Signs, click to edit/add: Last Vital Signs Temp 97.6 F 03/01/25 07:29 Pulse 98 H 03/01/25 08:00 Resp 18 03/01/25 07:29 BP 109/70 03/01/25 07:29 Pulse Ox 96 03/01/25 07:29 O2 Del Method Room Air 03/01/25 07:29 Progress Note: A&P Assessment and Plan (1) Urinary tract infection: (2) Encephalopathy: (3) Sepsis: (4) Edema: Plan Sepsis present on admission manifested by leukocytosis, tachycardia, elevated lactic acid and signs of infection Patient was given aggressive IV fluid infusion. Blood and urine cultures were completed. Thus far negative. Continue IV antibiotic. Urine culture from [facility] also was negative. Urinary tract infection I suspect that this is partially treated. She was recently admitted to an outside hospital and completed a course of antibiotic. Urine culture at that facility was negative. Patient was treated with Levaquin for 3 days Urine and blood cultures are pending. Start patient on doxycycline. Urinary retention about 300 mL. This is likely secondary to overflow retention and less likely related to overactive bladder. Avoid suppressive therapy. Consideration for straight cath versus indwelling Justice catheter. Bladder scan showed less than 100 mL. Encephalopathy, confusion, hallucination This could be related to sepsis and UTI This could be related to carbidopa and/or amantadine. Patient stated that her neurologist increased her carbidopa dose and started her on amantadine recently. Patient appears to be coherent. No evidence of delusion at this time. No clinical evidence that suggest meningitis or encephalitis CAT scan of the head is negative. No strong indication to proceed with MRI imaging at this time I discontinued amantadine. Monitor her hallucination of the next 24 hours. Parkinson disease with significant resting tremor, rigidity and functional disability Continue preadmission home medication although her hallucination could be related to carbidopa. Patient is to follow-up with her neurologist Dr. Moore. Bilateral lower extremities with edema Venous ultrasound rule out DVT. This was negative for DVT. I started patient on diuretics Hypertension Continue home metoprolol IV diuretics. Constipation Continue stool softeners and stimulant DVT prophylaxis Lovenox subcu Chronic medical conditions not listed above, incidental findings seen on labs and imaging. These would need to be addressed. Could be addressed when time and condition are appropriate. Could be addressed in the outpatient setting by PCP collaboration with other needed outpatient providers. Urinary Catheter Management Urinary Catheter Management Straight: Cath placed during this visit: yes Urethral indwelling: No Insertion date: 02/27/25 Insertion time: 20:10
[2025-03-01] MEDS: POTASSIUM CHLORIDE 10 MEQ ER TABLET PO (10:21)
[2025-03-01] MEDS: TORSEMIDE 20 MG TABLET 10 MG PO (10:21)
--- NOTE | 2025-03-01 11:16 | PT.DAILY ---
Physical Therapy Daily Note PT Daily Note/Assess Start: 03/01/25 11:10 Freq: Status: Active Protocol: Document 03/01/25 11:11 LUÍS (Rec: 03/01/25 11:16 LUÍS [id number]) Physical Therapy Daily Note/Assessment Time In/Time Out Time In 10:02 Time Out 10:13 Pain In Pain N/A Pain Out Pain N/A Subjective Subjective Pt sitting in BS chair upon arrival. Wishes to use restroom and go back to bed. Agreeable to allow FLOATING DERRICK OPERATOR to assist with this. Therapeutic Exercise Time Therapeutic Exercise 4 Minutes (minutes) Therapeutic Exercise 0 Units Therapeutic Exercise Treatment Therapeutic Exercise pt performs LE ROM/strengthening ex while sitting Treatment unsupported at EOB 10x ea. Therapeutic Activity Time Therapeutic Activity 7 Minutes (minutes) Therapeutic Activity 1 Units Therapeutic Activity Treatment Bed Mobility Ability Moderate Assist Chair Transfer Contact Guard Assist Ability Therapeutic Activity Sit>stand CGA for safety. Pt amb 25' to restroom with Comments rollator, CGA. Pt requires assistance to doff/don brief when in restroom - holding grab bar for stability. Pt sit>stand from toilet SBA with grab bar. Able to perform pericare SBA. amb 5' to sink with rollator, CGA . washes hands without LOB. pt amb 20' with rollator CGA to EOB. Pt sits EOB to perform LE ex. Sit>supine ModA for LEs. Remains supine with call light within reach and bed alarm activated. Total Physical Therapy Time Total Therapy 11 Minutes Total Physical 1 Therapy Units Summary Daily Note Summary Improved gait endurance and stability with amb. Min unsteadiness due to weakness but no true LOB.
--- NOTE | 2025-03-01 13:18 | CM.NOTE ---
No growth one day for urine culture, tiger txt sent to Dr. Mcclendon.
--- NOTE | 2025-03-01 13:59 | SWNOTE1 ---
[facility]IGH faxed over physician note, PT note, and vitals to [facility] at [facility]. [facility] notified them of possible discharge tomorrow.
[2025-03-01] MEDS: ACETAMINOPHEN 325 MG TABLET 650 MG PO (16:08)
[2025-03-02] VITALS (9 sets, daily range): BP systolic 115–137; BP diastolic 68–82; PULSE 85–132; TEMP 36.7–36.8; O2SAT 92–94
[2025-03-02] MEDS: DOXYCYCLINE HYCLATE 100 MG in 0.9 % SODIUM CHLORIDE 100 ML IV (01:05)
[2025-03-02] MEDS: CYCLOBENZAPRINE HCL 10 MG TABLET 5 MG PO (05:46)
[2025-03-02] MEDS: PANTOPRAZOLE SODIUM 40 MG TABLET.DR PO (05:46)
[2025-03-02] MEDS: BUSPIRONE HCL 10 MG TABLET PO (05:46)
[2025-03-02] MEDS: CARBIDOPA/LEVODOPA 25 MG-100 MG TABLET 2 TAB PO (05:46)
--- NOTE | 2025-03-02 07:40 | CM.NOTE ---
Rounds made with Dr. Mcclendon, pt will discharge to [facility] today for skilled therapy. RN updated with plan of care.
--- NOTE | 2025-03-02 07:48 | REH.PTDLY ---
Physical Therapy Daily Note PT Daily Note/Assess Start: 03/01/25 11:10 Freq: Status: Active Protocol: Document 03/02/25 07:39 PING (Rec[facility]02[facility]25 07[facility]47 [id number] Physical Therapy Daily Note/Assessment Time In 07:20 Time Out 07:37 Subjective Pt awake in bed upon arrival. Complains of pain in posterior Konrad LEs. States she was due to have injections in hip with pain management, but was here so had to cancel that. Therapeutic Exercise 7 Minutes (minutes) Therapeutic Exercise 0 Units Therapeutic Exercise Instructed in seated LAQ with cues to hold at end range Treatment to avoid rapid pace, counting aloud to help keep pt from seeding up. UE reaching up into end range shoulder flexion and back down 10x, followed by horizontal abduction 10x. Standing step outs with UE support, stepping into abd and flexion, again needing cues to slow down. Therapeutic Activity 10 Minutes (minutes) Therapeutic Activity 1 Units Bed Mobility Ability Moderate Assist,1 Person Assist Chair Transfer Contact Guard Assist Ability Therapeutic Activity Pt attempted supine to sit transfers Ind, but unable to Comments do so. Requires Mod A to sit bedside. Sit to stand transfers CGA with pt having UEs on rollator with cues to correct. Gait training with rollator CGA 20 feet into restroom. CGA with toilet transfers, pt is able to don/doff brief Ind. Stood at sink to wash hands for 1 minute. Gait training with rollator CGA for safety 100 feet with several cues needed for pt to ambulate at slower pace and to keep rollator closer to her. Despite cues to slow down, pt still walks at elevated speed. Cues to reach back for chair once in room. Sit to stand transfers from chair with cues to use arm rests 5x. Total Therapy 17 Minutes Total Physical 1 Therapy Units Daily Note Summary Pt reports mild fatigue post rx, but feels good to get up and move. Several cues needed during rx for pt to slow down with ambulation speed and rate of exs being performed for safety. Mod A needed to transfer out of bed. Pt would benefit from skilled therapy to aide in safety awareness and improved gait pattern, as well as strength to ease transfers in and out of bed.
--- NOTE | 2025-03-02 08:34 | PM.DS1 ---
DS: Providers Provider Date of admission: 02/27/25 21:02 Primary care physician: Non-Staff Physician, Consults: 02/28/25 Occupational Therapy Eval and Treat Routine Reason for consultation: weakness Physical Therapy Eval and Treat Routine Reason for consultation: weakness DS: Diagnosis Discharge Diagnosis (1) Urinary tract infection: (2) Encephalopathy: (3) Sepsis: (4) Edema: Plan As listed above, below and others that are not listed DS: Summary Hospital Course Hospital Course: Mrs. Maxx martinez is a 54-year-old female who came in with visual hallucination. SIRS present on admission manifested by leukocytosis, tachycardia, elevated lactic acid and signs of infection Patient was given aggressive IV fluid infusion. Blood and urine cultures were completed. Thus far negative. Urine culture from [facility] also was negative. Discontinue antibiotic. Urinary tract infection I suspect that this is partially treated. She was recently admitted to an outside hospital and completed a course of antibiotic. Urine culture at that facility was negative. Patient was treated with Levaquin for 3 days Urine and blood cultures are negative. Patient completed the recommended dose for UTI. Patient will be discharged back to the facility of antibiotic. Urinary retention about 300 mL. This is likely secondary to overflow retention and less likely related to overactive bladder. Avoid suppressive therapy. Consideration for straight cath versus indwelling Justice catheter. Bladder scan showed less than 100 mL. Encephalopathy, confusion, hallucination, complete resolution. This could be related to sepsis and UTI. This could be related to carbidopa and/or amantadine. Patient stated that her neurologist increased her carbidopa dose and started her on amantadine recently. Patient appears to be coherent. No evidence of delusion at this time. No clinical evidence that suggest meningitis or encephalitis CAT scan of the head is negative. No strong indication to proceed with MRI imaging at this time I discontinued amantadine. Significant and complete resolution of her visual hallucination since the discontinuation of amantadine. I discussed with the patient risk and the benefit of amantadine. She is in agreement not to resume it until she sees her neurologist Dr. Moore. Her tremor did not get worse after discontinuation of amantadine. Parkinson disease with significant resting tremor, rigidity and functional disability Continue continue carbidopa. Discontinued amantadine due to hallucination and encephalopathy. Patient is to follow-up with her neurologist Dr. Moore. Bilateral lower extremities with edema Venous ultrasound rule out DVT. This was negative for DVT. I started patient on diuretics Hypertension Continue home metoprolol Constipation Continue stool softeners and stimulant Patient has had a few bowel movement DVT prophylaxis Lovenox subcu Chronic medical conditions not listed above, incidental findings seen on labs and imaging. These would need to be addressed. Could be addressed when time and condition are appropriate. Could be addressed in the outpatient setting by PCP collaboration with other needed outpatient providers. Patient has multiple complex medical issues as listed above and others that are not listed. All appear to be stable. I do not have any clear or strong clinical justification to extend inpatient hospitalization. Patient however will require close and frequent monitoring as well as additional work-up, investigation and therapeutic intervention that could take place from this point on post discharge. That is to prevent relapse, decompensation, rehospitalization and other medical implications. I instructed patient to ask her primary care doctor to obtain [facility] record entirely to address abnormalities seen on labs and imaging that I have and have not addressed during this hospitalization, follow-up on pending blood work, imaging and pathology is if available and to follow-up on needed medical care in the outpatient setting. Time Spent with Patient Time attestation: Total time spent providing and/or coordinating discharge services: Time spent: greater than 30 minutes Exam Narrative Exam Narrative: [pt is awake and alert. oriented to place, time and person, morbidly obese HEENT: [place] conjunctiva and NL buccal mucosa Neck: Supple, no tenderness Endocrine: No Thyromegaly. Vascular: No JVD or carotid bruit. Lymphatic: No cervical lymphadenopathy. Chest: CTA no DTP. Heart RRR, no extra sound or murmur. Abd: Soft, no tenderness, no rebound and no rigidity. Increase abd girth therefore clinically I could not exclude the possibility of intra abd mass or organomegaly. LE: No cyanosis or clubbing, no varices. Bilateral lower extremities edema. Joint deformity. Neuro: A A O. Nl speech, resting tremor, increased rigidity, moderate functional impairment, unable to stand up and ambulate on her own. Symmetrical motor and tone Patient is completely awake, alert and coherent. Able to focus. Able to engage. No clinical evidence of delusion. []] Constitutional Vital Signs, click to edit/add: Last Vital Signs Temp 98.1 F 03/02/25 08:19 Pulse 121 H 09/18/25 08:19 Resp 20 03/02/25 08:19 BP 118/82 03/02/25 08:19 Pulse Ox 94 L 03/02/25 08:19 O2 Del Method Room Air 03/02/25 08:19 DS: Data Data Completed and Pending Labs on day of discharge: Preliminary micro results at discharge 02/27/25 20:05 Blood Culture Result 2 - Preliminary Blood - Right Antecubital NO GROWTH AT 36-48 HOURS. FINAL TO FOLLOW. 02/27/25 19:06 Blood Culture Result 1 - Preliminary Blood - Right Antecubital NO GROWTH AT 36-48 HOURS. FINAL TO FOLLOW. 02/27/25 19:27 Urine Culture - Preliminary Urine,Clean Catch Pending - Specimen sent to [facility] Discharge Plan Discharge Disposition: Xfer SNF Condition: Fair Discharge Medications: New acetaminophen [Tylenol] 325 mg Tablet 650 mg PO Q6H PRN (Reason: Pain) Qty: 0 0RF sennosides-docusate sodium 8.6-50 mg Tablet 1 tab PO QD PRN (Reason: Constipation) Qty: 0 0RF aspirin 81 mg Tablet,Chewable 81 mg PO QD Qty: 0 0RF metoprolol succinate 25 mg Tablet Extended Release 24 Hr 25 mg PO QD Qty: 0 0RF potassium chloride 10 mEq Tablet,Er Particles/Crystals 10 meq PO QD Qty: 0 0RF torsemide 10 mg tablet 10 mg PO DAILY Qty: 30 0RF Continued buspirone 10 mg tablet 10 mg PO TID omeprazole 20 mg capsule,delayed release(DR/EC) 20 mg PO .am nystatin 100,000 unit/gram powder 1 applic TOPICAL .q6 PRN (Reason: red) carbidopa-levodopa 25-100 mg tablet 2 tab PO TID cyclobenzaprine 5 mg tablet 5 mg PO TID cholecalciferol (vitamin D3) 50 mcg (2,000 unit) capsule 50 mcg PO DAILY bisacodyl [Dulcolax (bisacodyl)] 10 mg suppository 10 mg NV DAILY PRN (Reason: constipation) Patient Comments: no bowel movement lidocaine 5 % adhesive patch,medicated 1 patch topical .Q12 PRN (Reason: pain) Patient Comments: lower back melatonin 5 mg capsule 3 mg PO HS PRN (Reason: sleep) Patient Comments: pt takes 5 mg Rx Instructions: pt takes 5mg per EMAR cyclosporine [Restasis] 0.05 % dropperette 1 drp ophthalmic (eye) Q12H Discontinued amantadine HCl 100 mg capsule 100 mg PO BID metoprolol tartrate 25 mg tablet 25 mg PO Q12H ascorbic acid (vitamin C) 250 mg tablet 250 mg PO DAILY cetirizine 10 mg capsule 10 mg PO DAILY sodium phosphates 19-7 gram/118 mL enema 118 ml NV DAILY PRN (Reason: constipation) Patient Comments: no bm in 96 hours Print Language: Korean Activity Restrictions/Additional Instructions: I may not have addressed or treated all of your medical illnesses or the abnormal blood work or imaging studies during this hospitalization. Please ask your primary care provider to obtain [facility] records entirely to follow up on all of the abnormal physical, laboratory, and imaging findings that I have not addressed. Please return back to the emergency room or seek medical attention if your symptoms worsen or return. Discharging you from [facility] does not mean that your medical care ends here and now. You may still need additional monitoring, work up, investigation, and treatment plan to be handled from this point on by out patient providers including your primary care provider and specialists. For any medication question, please contact your retail pharmacist or your primary care provider. Thank you. Forms: Portal Instructions Follow Up Appointments: Mar.20 @ 10:20am with Dr. Moore [facility], [id number], [place] [phone]
[2025-03-02] MEDS: POTASSIUM CHLORIDE 10 MEQ ER TABLET PO (09:06)
[2025-03-02] MEDS: METOPROLOL SUCCINATE 25 MG TAB.ER.24H PO (09:06)
[2025-03-02] MEDS: ACETAMINOPHEN 325 MG TABLET 650 MG PO (09:06)
[2025-03-02] MEDS: TORSEMIDE 20 MG TABLET 10 MG PO (09:07)
[2025-03-02] MEDS: ENOXAPARIN SODIUM 40 MG/0.4 ML SYRINGE SUBQ (09:07)
[2025-03-02] MEDS: NYSTATIN 100,000 UNITS/GRAM CREAM 15 GM TUBE 1 APPLIC TOPICAL (09:11)
[2025-03-02] MEDS: ASPIRIN 81 MG TAB.CHEW PO (09:13)
--- NOTE | 2025-03-02 09:35 | SWNOTE1 ---
Pt is medically stable for discharge today and will be returning to [facility]. LEIGH faxed over dc med rec, dc summary, most recent vitals, and OT from yesterday to Cas[facility] at [facility]. LEIGH did check with nurse and pt can go by wheelchair. LEIGH called and set up trips for pt. Trips will be here between 1:30-2:00 to transport her back to [facility]. LEIGH took packet and CRF out to the med/surge floor.
--- NOTE | 2025-03-02 09:46 | SWNOTE1 ---
SW notified pt's nurse, pt, and Casper at [facility] of time of transport.
== END 2025-03-02 13:06 | DRG 872 ==
LOC: ER 20:49 → MS 21:06
PROVIDERS: Emergency Medicine; Admitting Provider Internal Medicine; Emergency Provider Emergency Medicine; Visit Provider Internal Medicine
DX: A41.9 Sepsis, unspecified organism (principal); N39.0 Urinary tract infection, site not specified; G93.40 Encephalopathy, unspecified; Z68.41 Body mass index [BMI] 40.0-44.9, adult; R33.9 Retention of urine, unspecified; R60.0 Localized edema; G20.A1 Parkinson's disease without dyskinesia, without mention of fluctuations; I10 Essential (primary) hypertension; K59.00 Constipation, unspecified; E66.01 Morbid (severe) obesity due to excess calories; Z79.899 Other long term (current) drug therapy
CPT/HCPCS: 36415; 51798; 70450; 71045; 80053; 81001; 83605; 83735; 84100; 84484; 85025; 87040; 87086; 93005; 93306; 93970; 96365; 97162; 97165; 97530; 99285; J0744; J1650